=== PATIENT | male | born 1990 | race American Indian/Alaskan Native ===

== ENCOUNTER 2017-12-26 23:15 | Emergency (ER) | payer SELFPAY ==
--- NOTE | 2017-12-27 00:26 | XRay Report ---
FINAL REPORT EXAM: XR FOOT 3+V LT HISTORY: Left foot pain post trauma TECHNIQUE: Three views of the left foot were obtained. FINDINGS: There is no evidence of fracture or soft tissue injury. IMPRESSION: Within normal limits.
[2017-12-27] MEDS ORDERED: MOTRIN PO ONE (05:30)
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
--- NOTE | 2017-12-27 06:04 | XRay Report ---
FINAL REPORT EXAM: XR ANKLE 2V LT HISTORY: trauma to left foot and ankle TECHNIQUE: AP and lateral views of left ankle were submitted. FINDINGS: There is an acute obliquely oriented mildly displaced fracture of the lateral malleolus with adjacent lateral soft tissue swelling. There are no additional fractures identified. IMPRESSION: Acute obliquely oriented mildly displaced acute fracture of the lateral malleolus with adjacent soft tissue swelling.
[2017-12-27] MEDS ORDERED: PERCOCET 5/325 PO ONE (06:18)
[2017-12-27 07:25] VITALS: BP 118/62
== END 2017-12-27 07:25 | disposition home or self-care (01) ==
LOC: ED 23:15
DX: S82.62XA Displaced fracture of lateral malleolus of left fibula, initial encounter for closed fracture (principal); W20.8XXA Other cause of strike by thrown, projected or falling object, initial encounter; Y93.89 Activity, other specified; Y92.89 Other specified places as the place of occurrence of the external cause; Y99.8 Other external cause status
CPT/HCPCS: 99283

== ENCOUNTER 2020-08-30 09:35 | Emergency (ER) | payer SELFPAY ==
[2020-08-30 10:06] VITALS: BP 120/48
--- NOTE | 2020-08-30 11:45 | Emergency Department Report ---
Eye Injury/Foreign Body - HPI Duration: 2 Days Eye Symptoms: Eye Pain: No, Blurred Vision: No, Eye Redness: No, Grinding/Hammering Metal: No, Contact Lens Use: No, Photophobia: No Other History: This is a pleasant 30-year-old male presents the emergency department with a chief complaint of a painless bump above his right eye. Patient reports he went into the [facility] and had his eyebrows trimmed and he thinks he may have an ingrown hair. He reports has been increasing swelling. He denies any pain to the eye, changes in vision, discharge from the eye. He denies any known past medical history, current medication use or known allergies to medications. He denies any injuries. He denies any associated fever, chills, night sweats, headache, dizziness, blurry vision, nausea, vomiting, diarrhea, chest pain, shortness of breath. ED Review of Systems ROS: Stated complaint: RT EYE Other details as noted in HPI Comment: All other systems reviewed and negative Constitutional: denies: chills, fever Eyes: as per HPI. denies: eye pain, eye discharge, vision change ENT: denies: ear pain, throat pain Respiratory: denies: cough, shortness of breath, wheezing Cardiovascular: denies: chest pain, palpitations Endocrine: no symptoms reported Gastrointestinal: denies: abdominal pain, nausea, diarrhea Genitourinary: denies: urgency, dysuria Musculoskeletal: denies: back pain, joint swelling, arthralgia Skin: denies: rash, lesions Neurological: denies: headache, weakness, paresthesias Psychiatric: denies: anxiety, depression Hematological/Lymphatic: denies: easy bleeding, easy bruising ED Past Medical Hx - Past Medical History Previous Medical History?: No - Surgical History Past Surgical History?: No - Social History Smoking Status: Never Smoker Substance Use Type: None - Medications Home Medications: Home Medications Medication Instructions Recorded Confirmed Last Taken Type oxyCODONE /ACETAMINOPHEN [Percocet 1 tab PO Q6HR PRN #12 tablet 12/27/17 Unknown Rx 5/325] cephALEXin [Keflex] 500 mg PO Q8HR #30 cap 08/30/20 Unknown Rx Eye Injury Exam - Exam General: Vital signs noted. No distress. Alert and acting appropriately. GENERAL APPEARANCE: Well-developed, well-nourished, no acute distress HEENT: Normocephalic and atraumatic. No scleral icterus. Pupils are equal, round, and reactive to light and accommodation. No conjunctival injection, there is some mild soft tissue swelling just below the right eyebrow. No fluctuance. No induration. No crepitus. There are no lesions to the eye. There is no periorbital edema or tenderness. Normal extraocular movements without pain oropharynx is clear. Mouth revealed good dentition, no lesions. Tympanic membranes are clear. NECK: Supple. Trachea is midline. No evidence of thyroid enlargement. No lymphadenopathy or tenderness. CHEST: Symmetric. Nontender to palpation. LUNGS: Breath sounds are equal and clear bilaterally. No wheezes, rhonchi, or rales. HEART: Regular rate and rhythm with normal S1 and S2. No murmurs, gallops, or rubs. BREASTS: Symmetrical. No skin or nipple retractions. No nipple discharges or masses. ABDOMEN: Soft, flat, and benign. No mass, tenderness, guarding, or rebound. No organomegaly or hernia. Bowel sounds are present. No CVA tenderness or flank mass. GENITOURINARY: Deferred RECTAL: Deferred EXTREMITIES: No cyanosis, clubbing, or edema. No lower extreme edema, negative Homans sign bilaterally NEUROLOGIC: No focal sensory or motor deficits are noted. Gait is normal. Cranial nerves II through XII are intact. Deep tendon reflexes are intact. PSYCHIATRIC: The patient is awake, alert, and oriented x3. Recent and remote memory is intact. Appropriate mood and affect. SKIN: Warm, dry, and well perfused. Good turgor. No lesions, nodules or rashes are noted. No onychomycosis. LYMPHATICS: No cervical, axillary, or groin adenopathy is noted. ED Course Vital Signs 08/30/20 10:06 Temperature 97.5 F L Pulse Rate 58 L Respiratory 16 Rate Blood Pressure 120/48 [Right] O2 Sat by Pulse 100 Oximetry ED Medical Decision Making - Medical Decision Making Patient's exam was consistent with an ingrown hair. I will treat with warm compresses, anti-inflammatories and antibiotics. Recommended outpatient follow- up with primary care doctor. Return the [facility] department any change or worsening symptoms. - Differential Diagnosis Abscess, cellulitis, ingrown hair Critical care attestation.: If time is entered above; I have spent that time in minutes in the direct care of this critically ill patient, excluding procedure time. ED Disposition Clinical Impression: Ingrown hair Disposition: DC-01 TO HOME OR SELFCARE Is pt being admited?: No Condition: Stable Instructions: Ingrown Hair Prescriptions: cephALEXin [Keflex] 500 mg PO Q8HR #30 cap Referrals: [facility] [Provider Group] - 3-5 Days Time of Disposition: 11:45
== END 2020-08-30 11:59 | disposition home or self-care (01) ==
LOC: ED 09:35
DX: L73.1 Pseudofolliculitis barbae (principal); Z79.899 Other long term (current) drug therapy
CPT/HCPCS: 99282

== ENCOUNTER 2020-09-02 08:47 | Emergency (ER) | payer SELFPAY ==
[2020-09-02 08:55] VITALS: BP 110/62
--- NOTE | 2020-09-02 10:09 | Emergency Department Report ---
ED General Adult HPI - General Chief complaint: Skin/Abscess/Foreign Body Stated complaint: EYE INGROWN HAIR Time Seen by Provider: 09/02/20 09:00 Source: patient Mode of arrival: Ambulatory Limitations: No Limitations - History of Present Illness Initial comments: 30-year-old -Sammar[place] male patient presents with complaints of continued swelling to his right eyelid. Patient was seen here on Saturday and was prescribed Keflex and has been using warm compresses for an ingrown hair. No incision and drainage was performed at that time. Patient states pain has improved but swelling has not. He denies any painful eye movements or vision changes or fever/chills/sweats. He states compliance with the antibiotics. - Related Data Previous Rx's Medication Instructions Recorded Last Taken Type oxyCODONE /ACETAMINOPHEN [Percocet 1 tab PO Q6HR PRN #12 tablet 12/27/17 Unknown Rx 5/325] cephALEXin [Keflex] 500 mg PO Q8HR #30 cap 08/30/20 Unknown Rx Triamcinolone Acetonide 1 gm TP TID PRN #1 oint...g. 09/02/20 Unknown Rx predniSONE [Deltasone] 20 mg PO BID 4 Days #8 tab 09/02/20 Unknown Rx Allergies Allergy/AdvReac Type Severity Reaction Status Date / Time No Known Allergies Allergy Verified 09/02/20 08:49 ED Review of Systems ROS: Stated complaint: EYE INGROWN HAIR Other details as noted in HPI Constitutional: denies: chills, diaphoresis, fever, malaise, weakness Eyes: denies: eye discharge, vision change Neurological: denies: headache, numbness, paresthesias ED Past Medical Hx - Past Medical History Previous Medical History?: No - Surgical History Past Surgical History?: No - Social History Smoking Status: Never Smoker Substance Use Type: None - Medications Home Medications: Home Medications Medication Instructions Recorded Confirmed Last Taken Type oxyCODONE /ACETAMINOPHEN [Percocet 1 tab PO Q6HR PRN #12 tablet 12/27/17 Unknown Rx 5/325] cephALEXin [Keflex] 500 mg PO Q8HR #30 cap 08/30/20 Unknown Rx Triamcinolone Acetonide 1 gm TP TID PRN #1 oint...g. 09/02/20 Unknown Rx predniSONE [Deltasone] 20 mg PO BID 4 Days #8 tab 09/02/20 Unknown Rx ED Physical Exam - General Limitations: No Limitations General appearance: alert - Head Head exam: Present: atraumatic, normocephalic - Eye Eye exam: Present: PERRL, EOMI, other (Nonerythematous swelling noted to right upper eyelid with a palpable round hardened mass; no cellulitic changes are noted; no eye drainage is noted; area is nontender;). Absent: scleral icterus, conjunctival injection ED Course Vital Signs 09/02/20 09/02/20 08:53 08:54 Temperature 97.7 F Pulse Rate 70 69 Respiratory 16 Rate Blood Pressure 110/62 O2 Sat by Pulse 98 97 Oximetry - I & D Face Type of Procedure: Simple Site: Right upper eyelid Blade Size: 11 I & D Procedure: betadine prep, sterile drapes applied, sterile dressing applied Progress: 1 cc of lidocaine 1% without epi used to anesthetize area. Minimal bleeding occurred. No purulent drainage was obtained. Patient tolerated procedure well without any immediate complications ED Medical Decision Making - Medical Decision Making 30-year-old -[place]ammar[place] male patient presents with complaints of continued swelling to his right eyelid. Patient was seen here on Saturday and was prescribed Keflex and has been using warm compresses for an ingrown hair. No incision and drainage was performed at that time. Patient states pain has improved but swelling has not. He denies any painful eye movements or vision changes or fever/chills/sweats. He states compliance with the antibiotics. Incision and drainage attempted, however no purulent drainage was obtained. Patient to continue with Bactrim. Will prescribe topical steroid and advised patient increase warm compresses to 6 times a day. Discussed signs and symptoms that should prompt immediate return to the ED in detail with patient who verbalized understanding peer Critical care attestation.: If time is entered above; I have spent that time in minutes in the direct care of this critically ill patient, excluding procedure time. ED Disposition Clinical Impression: Ingrown hair Disposition: - TO HOME OR SELFCARE Is pt being admited?: No Condition: Stable Instructions: Ingrown Hair, Incision and Drainage, Care After Prescriptions: predniSONE [Deltasone] 20 mg PO BID 4 Days #8 tab Triamcinolone Acetonide 1 gm TP TID PRN #1 oint...g. PRN Reason: swelling Referrals: [facility] [Provider Group] - 3-5 Days
== END 2020-09-02 10:30 | disposition home or self-care (01) ==
LOC: ED 08:47
DX: L73.1 Pseudofolliculitis barbae (principal); Z79.899 Other long term (current) drug therapy
CPT/HCPCS: 99282